=== PATIENT | male | born 1965 | race Caucasian/White ===

== ENCOUNTER 2018-06-29 07:01 | Emergency (ER) | payer OTHER ==
[2018-06-29] MEDS ORDERED: NA CHLORIDE 0.9% 1,000 ML ONE (07:29)
[2018-06-29] MEDS ORDERED: MORPHINE 4 MG/ML SYR ONE (07:29)
[2018-06-29] MEDS ORDERED: KETOROLAC 30 MG/ML INJ ONE (07:29)
[2018-06-29 07:53] LABS: Absolute Lymphocytes (CBC) 2.2 K/uL (0.7-4.9); Absolute Monocytes 0.6 K/uL (0.1-1.3); Absolute Neutrophil 3.6 K/uL (1.8-8.0); Basophils % 0.9 % (0-1.3); Eosinophils % 4.4 % (0-4.4); Hematocrit 45.3 % (39.6-49.0); Lymphocytes % 32.1 % (15.3-44.8); MCH 31.7 pg (27.0-35.0); MCV 91.5 fL (80-100); MPV 11.7 fL (7.6-11.3); Monocytes % 9.3 % (3.3-12.3); RBC Red Blood Cell Count 4.96 M/uL (4.33-5.43)
--- NOTE | 2018-06-29 07:56 | RAD REPORT ---
EXAM DESCRIPTION: CT - Stone Protocol - 06/29/2018 7:40 am CLINICAL HISTORY: Abdominal pain. Left flank pain since yesterday with vomiting COMPARISON: None. TECHNIQUE: Computed axial tomography of the abdomen pelvis was obtained without oral or IV contrast. Lack of IV and oral contrast limits evaluation of solid organs, bowel, and vessels. Coronal reformat jeannette images were obtained and reviewed. All CT scans are performed using dose optimization technique as appropriate and may include automated exposure control or mA/KV adjustment according to patient size. FINDINGS: A left renal calculus is not seen. Mild left hydronephrosis and mild left hydroureter are seen. A 2 millimeter calculus is present within the distal left ureter near the ureteral vesicle junc tion. Two tiny nonobstructing right renal calculi are noted. Small bilateral hernias contain fat The liver, spleen, pancreas and adrenals appear grossly normal There is no evidence of diverticulitis. The appendix appears normal A duodenal diverticulum is seen. IMPRESSION: 2 millimeter calculus distal right ureter resulting in mild left hydronephrosis
[2018-06-29 08:00] LABS: Bilirubin Direct 0.2 mg/dL (0-0.2); Bilirubin Total 0.4 mg/dL (0.2-1.0); Potassium 3.5 mmol/L (3.5-5.1); Protein, Total 7.4 g/dL (6.4-8.2)
--- NOTE | 2018-06-29 08:23 | ER ---
Nurse's Notes [facility] Name: Felix Grant Age: 52 yrs Sex: Male : 1965 Arrival Date: 06/29/2018 Time: 07:03 Bed 13 Private MD: Shakeel Ovalles V Diagnosis: Hydronephrosis with renal and ureteral calculous obstruction-mild, at UVJ Presentation: 06/29 07:04 Presenting complaint: Patient states: left flank pain that began yesterday. Pt states aa5 "I had the pain all day yesterday until around 6pm and then it came back this morning". Pt reports nausea and vomiting yesterday, denies N/V today. 07:04 Transition of care: patient was not received from another setting of care. Onset of aa5 symptoms was June 2018. Risk Assessment: Do you want to hurt yourself or someone else? Patient reports no desire to harm self or others. Initial Sepsis Screen: Does the patient meet any 2 criteria? No. Patient's initial sepsis screen is negative. Does the patient have a suspected source of infection? No. Patient's initial sepsis screen is negative. Care prior to arrival: None. 07:04 Method Of Arrival: Ambulatory aa5 07:04 Acuity: SONDRA 3 aa5 Historical: - Allergies: 07:05 No Known Allergies; aa5 - PMHx: 07:05 Kidney stones; aa5 - PSHx: 07:05 None; aa5 - Immunization history:: Adult Immunizations up to date. - Social history:: Smoking status: Patient/guardian denies using tobacco. - Ebola Screening: : No symptoms or risks identified at this time. Screenin:05 Abuse screen: Denies threats or abuse. Nutritional screening: No deficits noted. aa5 Tuberculosis screening: No symptoms or risk factors identified. Fall Risk None identified. Assessment: 07:08 General: Appears uncomfortable, Behavior is calm, cooperative. Pain: Complains of pain aa5 in left flank Pain does not radiate. Pain currently is 7 out of 10 on a pain scale. Quality of pain is described as sharp, Pain began 1 day ago. Is intermittent. Neuro: Level of Consciousness is awake, alert, obeys commands, Oriented to person, place, time, situation. Cardiovascular: Heart tones S1 S2 present Rhythm is regular. Respiratory: Airway is patent Respiratory effort is even, unlabored, Respiratory pattern is regular, symmetrical. GI: Abdomen is round non-distended, Bowel sounds present X 4 quads. Abd is soft and non tender X 4 quads. Reports nausea, vomiting, yesterday, denies Nausea or vomiting today. : Denies inability to void. EENT: No signs and/or symptoms were reported regarding the EENT system. Derm: Skin is pink, warm \\T\\ dry. Musculoskeletal: Range of motion: intact in all extremities. 07:31 Reassessment: Patient and/or family updated on plan of care and expected duration. Pain aa5 level reassessed. Patient is alert, oriented x 3, equal unlabored respirations, skin warm/dry/pink. Pain: Pain currently is 7 out of 10 on a pain scale. 07:55 Reassessment: Patient and/or family updated on plan of care and expected duration. Pain aa5 level reassessed. Patient is alert, oriented x 3, equal unlabored respirations, skin warm/dry/pink. Patient states feeling better. Pt reminded of need for urine collection, pt states "I still can't pee right now, maybe in a little bit". Pt sitting up in bed watching TV . Pain: Pain currently is 1 out of 10 on a pain scale. 08:22 Reassessment: Patient and/or family updated on plan of care and expected duration. Pain aa5 level reassessed. Patient is alert, oriented x 3, equal unlabored respirations, skin warm/dry/pink. Pain: Pain currently is 1 out of 10 on a pain scale. 08:50 Reassessment: Patient is alert, oriented x 3, equal unlabored respirations, skin aa5 warm/dry/pink. Awaiting for pt's father for ride home. . 09:30 Reassessment: Patient is alert, oriented x 3, equal unlabored respirations, skin aa5 warm/dry/pink. Vital Signs: 07:05 BP 149 / 104; Pulse 68; Resp 18 S; Temp 98.3(O); Pulse Ox 98% on R/A; Weight 88.45 kg aa5 (R); Height 5 ft. 10 in. (177.80 cm) (R); Pain 7/10; 07:56 BP 136 / 91; Pulse 58; Resp 16 S; Pulse Ox 96% on R/A; Pain 1/10; aa5 07:05 Body Mass Index 27.98 (88.45 kg, 177.80 cm) aa5 ED Course: 07:03 Patient arrived in ED. am2 07:03 Shakeel Ovalles MD is Private Physician. am2 07:03 Arm band placed on. aa5 07:03 Patient placed in an exam room, on a stretcher. aa5 07:03 Patient has correct armband on for positive identification. Bed in low position. Call aa5 light in reach. Side rails up X 1. 07:10 Silvia Mcdaniel, RN is Primary Nurse. aa5 07:13 Triage completed. aa5 07:16 Inserted saline lock: 20 gauge in right antecubital area, using aseptic technique. em1 Blood collected. 07:19 Kimberly Cerda FNP-C is PHCP. snw 07:19 Phil Tucker MD is Attending Physician. snw 07:39 CT completed. Patient tolerated procedure well. Patient moved to CT via wheelchair. sj Patient moved back from CT. 07:40 CT Stone Protocol In Process Unspecified. EDMS 08:22 Shakeel Ovalles MD is Referral Physician. snw 09:25 No provider procedures requiring assistance completed. aa5 09:30 IV discontinued, intact, bleeding controlled, No redness/swelling at site. Pressure aa5 dressing applied. Administered Medications: 07:26 Drug: NS 0.9% 1000 ml Route: IV; Rate: 75 ml/hr; Site: right antecubital; aa5 09:30 Follow up: IV Status: Order to discontinue infusion aa5 07:26 Drug: TORadol 30 mg Route: IVP; Site: right antecubital; aa5 07:31 Follow up: Response: No adverse reaction aa5 07:26 Drug: morphine 4 mg Route: IVP; Site: right antecubital; aa5 07:31 Follow up: Response: No adverse reaction aa5 08:22 Drug: Flomax 0.4 mg Route: PO; aa5 08:35 Follow up: Response: No adverse reaction aa5 08:35 Drug: fentaNYL (PF) 50 mcg Route: IM; Site: right deltoid; aa5 08:50 Follow up: Response: No adverse reaction aa5 Outcome: 08:22 Discharge ordered by . snw 09:32 Discharged to home ambulatory, with family. aa5 09:32 Condition: improved 09:32 Discharge instructions given to patient, Instructed on discharge instructions, follow up and referral plans. medication usage, Demonstrated understanding of instructions, follow-up care, medications, Prescriptions given X 3. 09:45 Patient left the ED. aa5 Signatures: Dispatcher [employer] EDMS Kimberly Cerda, CREDIT ANALYSIS MANAGER-C CREDIT ANALYSIS MANAGER-CsnPayal Valderrama Eric em1 Silvia Mcdaniel RN RN aa5 Maryse Mcghee am2 Corrections: (The following items were deleted from the chart) 10:18 09:51 Patient left the ED. em1 aa5
--- NOTE | 2018-06-29 08:23 | EDPHYS ---
Physician Documentation [facility] Name: Felix Grant Age: 52 yrs Sex: Male : 1965 Arrival Date: 06/29/2018 Time: 07:03 Bed 13 Private MD: Shakeel Ovalles V ED Physician Phil Tucker HPI: 06/29 07:43 This 52 yrs old Male presents to ER via Ambulatory with complaints of Flank snw Pain. 07:43 The patient complains of pain in the left low back. The pain does not radiate. Onset: snw The symptoms/episode began/occurred suddenly, and became persistent. Modifying factors: The symptoms are alleviated by nothing. the symptoms are aggravated by nothing. Associated signs and symptoms: Pertinent positives: nausea, vomiting. Severity of pain: At its worst the pain was severe. The patient has experienced similar episodes in the past, several times. The patient has not recently seen a physician. hx of kidney stones. Historical: - Allergies: 07:05 No Known Allergies; aa5 - PMHx: 07:05 Kidney stones; aa5 - PSHx: 07:05 None; aa5 - Immunization history:: Adult Immunizations up to date. - Social history:: Smoking status: Patient/guardian denies using tobacco. - Ebola Screening: : No symptoms or risks identified at this time. ROS: 07:42 Constitutional: Negative for fever, chills, and weight loss, Eyes: Negative for injury, snw pain, redness, and discharge, ENT: Negative for injury, pain, and discharge, Neck: Negative for injury, pain, and swelling, Cardiovascular: Negative for chest pain, palpitations, and edema, Respiratory: Negative for shortness of breath, cough, wheezing, and pleuritic chest pain, Abdomen/GI: Negative for abdominal pain, nausea, vomiting, diarrhea, and constipation, Back: Negative for injury and pain, MS/Extremity: Negative for injury and deformity, Skin: Negative for injury, rash, and discoloration, Neuro: Negative for headache, weakness, numbness, tingling, and seizure. 07:42 : Positive for flank pain. Exam: 07:42 Constitutional: This is a well developed, well nourished patient who is awake, alert, snw and in no acute distress. Head/Face: Normocephalic, atraumatic. Eyes: Pupils equal round and reactive to light, extra-ocular motions intact. Lids and lashes normal. Conjunctiva and sclera are non-icteric and not injected. Cornea within normal limits. Periorbital areas with no swelling, redness, or edema. ENT: Nares patent. No nasal discharge, no septal abnormalities noted. Tympanic membranes are normal and external auditory canals are clear. Oropharynx with no redness, swelling, or masses, exudates, or evidence of obstruction, uvula midline. Mucous membranes moist. Neck: Trachea midline, no thyromegaly or masses palpated, and no cervical lymphadenopathy. Supple, full range of motion without nuchal rigidity, or vertebral point tenderness. No Meningismus. Chest/axilla: Normal chest wall appearance and motion. Nontender with no deformity. No lesions are appreciated. Cardiovascular: Regular rate and rhythm with a normal S1 and S2. No gallops, murmurs, or rubs. Normal PMI, no JVD. No pulse deficits. Respiratory: Lungs have equal breath sounds bilaterally, clear to auscultation and percussion. No rales, rhonchi or wheezes noted. No increased work of breathing, no retractions or nasal flaring. Abdomen/GI: Soft, non-tender, with normal bowel sounds. No distension or tympany. No guarding or rebound. No evidence of tenderness throughout. Skin: Warm, dry with normal turgor. Normal color with no rashes, no lesions, and no evidence of cellulitis. MS/ Extremity: Pulses equal, no cyanosis. Neurovascular intact. Full, normal range of motion. Neuro: Awake and alert, GCS 15, oriented to person, place, time, and situation. Cranial nerves II-XII grossly intact. Motor strength 5/5 in all extremities. Sensory grossly intact. Cerebellar exam normal. Normal gait. Psych: Awake, alert, with orientation to person, place and time. Behavior, mood, and affect are within normal limits. 07:42 Back: pain, that is moderate, that is severe, ROM is normal, normal spinal alignment noted, CVA tenderness, is absent, vertebral tenderness, is not appreciated, muscle spasm, is not present. Vital Signs: 07:05 BP 149 / 104; Pulse 68; Resp 18 S; Temp 98.3(O); Pulse Ox 98% on R/A; Weight 88.45 kg aa5 (R); Height 5 ft. 10 in. (177.80 cm) (R); Pain 7/10; 07:56 BP 136 / 91; Pulse 58; Resp 16 S; Pulse Ox 96% on R/A; Pain 1/10; aa5 07:05 Body Mass Index 27.98 (88.45 kg, 177.80 cm) aa5 MDM: 07:21 Patient medically screened. [facility] 08:23 Data reviewed: vital signs, nurses notes. Data interpreted: Pulse oximetry: on room air snw is 96 %. Interpretation: acceptable. Counseling: I had a detailed discussion with the patient and/or guardian regarding: the historical points, exam findings, and any diagnostic results supporting the discharge/admit diagnosis, the presence of at least one elevated blood pressure reading (>120/80) during this emergency department visit, lab results, radiology results, the need for outpatient follow up, to return to the emergency department if symptoms worsen or persist or if there are any questions or concerns that arise at home. Special discussion: I have referred the patient to see his PCP for further evaluation of high blood pressure. Based on the history and exam findings, there is no indication for further emergent testing or inpatient evaluation. I discussed with the patient/guardian the need to see the primary care provider for further evaluation of the symptoms. I discussed with the patient/guardian the need to see the urologist for further evaluation of the symptoms. 06/29 07:21 Order name: Amylase, Serum; Complete Time: 08:14 snw 06/29 07:21 Order name: Basic Metabolic Panel; Complete Time: 08:14 snw 06/29 07:21 Order name: CBC with Diff; Complete Time: 08:14 snw 06/29 07:21 Order name: Creatinine for Radiology; Complete Time: 08:14 snw 06/29 07:21 Order name: Hepatic Function; Complete Time: 08:14 snw 06/29 07:21 Order name: Lipase; Complete Time: 08:14 snw 06/29 07:21 Order name: CT Stone Protocol; Complete Time: 08:14 snw 06/29 07:21 Order name: Urine Microscopic Only; Complete Time: 09:45 snw 06/29 09:31 Order name: Urine Dipstick--Ancillary (enter results); Complete Time: 09:45 bd 06/29 09:45 Order name: Urine Culture EDMS 06/29 07:21 Order name: IV Saline Lock; Complete Time: 07:22 snw 06/29 07:21 Order name: Labs collected and sent; Complete Time: 07:21 snw Administered Medications: 07:26 Drug: NS 0.9% 1000 ml Route: IV; Rate: 75 ml/hr; Site: right antecubital; aa5 09:30 Follow up: IV Status: Order to discontinue infusion aa5 07:26 Drug: TORadol 30 mg Route: IVP; Site: right antecubital; aa5 07:31 Follow up: Response: No adverse reaction aa5 07:26 Drug: morphine 4 mg Route: IVP; Site: right antecubital; aa5 07:31 Follow up: Response: No adverse reaction aa5 08:22 Drug: Flomax 0.4 mg Route: PO; aa5 08:35 Follow up: Response: No adverse reaction aa5 08:35 Drug: fentaNYL (PF) 50 mcg Route: IM; Site: right deltoid; aa5 08:50 Follow up: Response: No adverse reaction aa5 Disposition: 14:23 Co-signature as Attending Physician, Phil Tucker MD I agree with the assessment and pascual plan of care. Disposition: 06/29/18 08:22 Discharged to Home. Impression: Hydronephrosis with renal and ureteral calculous obstruction - mild, at UVJ. - Condition is Stable. - Discharge Instructions: Kidney Stones, Hydronephrosis, Dietary Guidelines to Help Prevent Kidney Stones. - Prescriptions for Zofran 4 mg Oral Tablet - take 1 tablet by ORAL route every 12 hours As needed; 20 tablet. Flomax 0.4 mg Oral Capsule, Sust. Release 24 hr - take 1 capsule by ORAL route once daily 1/2 hour following the same meal each day; 30 capsule. Diclofenac Sodium 75 mg Oral Tablet Sustained Release - take 1 tablet by ORAL route 2 times per day; 30 tablet. - Work release form, Medication Reconciliation Form, Thank You Letter, Antibiotic Education, Prescription Opioid Use form. - Follow up: Shakeel Ovalles; When: 1 - 2 days; Reason: Recheck today's complaints, Continuance of care, Re-evaluation by your physician. Follow up: Emergency Department; When: As needed; Reason: Worsening of condition. - Problem is new. - Symptoms have improved. Signatures: Dispatcher [employer] EDPhil Bob MD MD cha Therrien, Shelly, CLEARING DISTRIBUTION CLERK-C CLEARING DISTRIBUTION CLERK-Mendoza Lucas em1 Silvia Mcdaniel, RN RN aa5 Corrections: (The following items were deleted from the chart) 08:35 07:21 Urine Dipstick-Ancillary ordered. teja aa5 09:51 08:22 06/29/2018 08:22 Discharged to Home. Impression: Hydronephrosis with renal and em1 ureteral calculous obstruction - mild, at UVJ. Condition is Stable. Discharge Instructions: Kidney Stones, Hydronephrosis, Dietary Guidelines to Help Prevent Kidney Stones. Prescriptions for Zofran 4 mg Oral Tablet - take 1 tablet by ORAL route every 12 hours As needed; 20 tablet, Flomax 0.4 mg Oral Capsule, Sust. Release 24 hr - take 1 capsule by ORAL route once daily 1/2 hour following the same meal each day; 30 capsule, Diclofenac Sodium 75 mg Oral Tablet Sustained Release - take 1 tablet by ORAL route 2 times per day; 30 tablet. and Forms are Work release form, Medication Reconciliation Form, Thank You Letter, Antibiotic Education, Prescription Opioid Use. Follow up: Shakeel Ovalles; When: 1 - 2 days; Reason: Recheck today's complaints, Continuance of care, Re-evaluation by your physician. Follow up: Emergency Department; When: As needed; Reason: Worsening of condition. Problem is new. Symptoms have improved. snw
[2018-06-29] MEDS ORDERED: TAMSULOSIN 0.4 MG SR CAP ONE (08:25)
[2018-06-29] MEDS ORDERED: FENTANYL CITR 100 MCG/2 ML ONE (08:35)
[2018-06-29 09:43] LABS: Urine Bacteria 20-50 /HPF (NONE SEEN); Urine Culture Reflex Order REFLEXED; Urine Mucus 1+ /HPF (NONE SEEN); Urine RBC >50 /HPF (NONE SEEN)
[2018-06-29 09:44] LABS: Urine Blood 3+ (NEG); Urine Glucose NEGATIVE (NEG); Urine Protein 1+ (NEG); Urine Specific Gravity >1.030 (1.005-1.030); Urine pH 5.5 (5.0-7.0)
[2018-06-29 09:59] VITALS: TEMP 98.3
[2018-06-29 10:00] VITALS: BP 136/91; O2SAT 96
== END 2018-06-29 09:51 | disposition home or self-care (01) ==
LOC: ER 07:01
DX: N13.2 Hydronephrosis with renal and ureteral calculous obstruction (principal); Z87.442 Personal history of urinary calculi
CPT/HCPCS: 36415; 74176; 76377; 80048; 80076; 81003; 81015; 82150; 83690; 85025; 87086; 87088; 96361; 96372; 96374; 96375; 99284; J3010; J7030

== ENCOUNTER 2018-07-05 11:20 | Day surgery (SDC) | payer OTHER ==
[2018-07-04 17:00] LABS: Absolute Lymphocytes (CBC) 1.8 K/uL (0.7-4.9); Absolute Monocytes 0.6 K/uL (0.1-1.3); Absolute Neutrophil 4.4 K/uL (1.8-8.0); Basophils % 0.7 % (0-1.3); Hematocrit 44.6 % (39.6-49.0); Lymphocytes % 24.7 % (15.3-44.8); MCH 31.6 pg (27.0-35.0); MCV 91.1 fL (80-100); MPV 11.3 fL (7.6-11.3)
--- NOTE | 2018-07-04 17:16 | RAD REPORT ---
EXAM DESCRIPTION: RAD - Chest Pa And Lat (2 Views) - 07/04/2018 5:00 pm CLINICAL HISTORY: Preop chest, pending lithotripsy COMPARISON: August 2012 TECHNIQUE: PA and lateral views of the chest were obtained. FINDINGS: The lungs are clear. No suspicious interstitial pattern. Trachea is midline. Heart size i s normal and central vasculature is within normal limits. No pleural effusion or pneumothorax seen. No acute bony finding noted. No aortic abnormality. No worrisome change from the comparison study. IMPRESSION: No acute cardiopulmonary process.
[2018-07-04 17:23] LABS: Potassium 3.7 mmol/L (3.5-5.1)
--- NOTE | 2018-07-05 00:32 | EKG ---
Test Date: 2018-07-04 Test Time: 16:47:26 [employer] Officer: YAZAN MEASUREMENT RESULTS: Intervals: Rate: 54 AK: 208 QRSD: 98 QT: 418 QTc: 396 [place]: P: 31 AK: 208 QRS: 3 T: 39 INTERPRETIVE STATEMENTS: Sinus bradycardia Cannot rule out Anterior infarct, age undetermined Abnormal ECG Compared to ECG 09/05/2012 12:07:26 Myocardial infarct finding now present First degree AV block no longer present Electronically Signed On 07-05-18 00:31:54 CDT by Cuco Mondragon
[~2018-07-05 11:20] MED LIST: GENTAMICIN 100 MG/100 ML BAG 100 MG/100 ML BAG IV SCH
--- OUTSIDE RECORDS SUMMARY | 2018-07-05 11:25 | XMS REPORT | Clinical Summary ---
:1965 Author Organization [facility] Address [address] [place] [address] Care Team Providers Name Role Phone Shakeel Ovalles MD Primary Care Provider Allergies No Known Allergies Current Medications Prescription Sig. Disp. Refills Start Date End Date Status aspirin (ECOTRIN) 81 Take 81 mg Active MG enteric coated by mouth tablet daily. simvastatin (ZOCOR) Take 1 90 tablet 3 11/09/2017 Active 20 MG tablet (20 tabletIndications: mg total) by Hyperlipidemia, mouth unspecified nightly. hyperlipidemia type simvastatin (ZOCOR) Take 1 90 tablet 3 09/22/2016 09/22/2017 40 MG tablet tablet (40 mg total) by mouth nightly. simvastatin (ZOCOR) Take 20 mg 11/09/2017 Discontinued 20 MG tablet by mouth nightly. Active Problems Problem Noted Date Carotid bruit 11/09/2017 Peripheral vascular disease 11/09/2017 Stenosis of carotid artery 11/03/2016 Hyperlipidemia 11/03/2016 SOB (shortness of breath) 11/03/2016 Encounters Date Type Specialty Care Team Description 11/09/2017 Lab Lab Sonny Reeder MD Hyperlipidemia, unspecified hyperlipidemia type 11/09/2017 Office Visit Cardiology Sonny Reeder MD Stenosis of carotid artery, unspecified laterality (Primary Dx); Hyperlipidemia, unspecified hyperlipidemia type after 07/04/2017 Social History Tobacco Use Types Packs/Day Years Used Date Never Smoker Alcohol Use Drinks/Week oz/Week Comments Yes Sex Assigned at Date Recorded Not on file Last Filed Vital Signs Vital Sign Reading Time Taken Blood Pressure 139/99 11/09/2017 9:19 AM LAUNDRY PRICING CLERK Pulse 73 11/09/2017 9:19 AM LAUNDRY PRICING CLERK Temperature - - Respiratory Rate - - Oxygen Saturation - - Inhaled Oxygen Concentration - - Weight 88 kg (194 lb) 11/09/2017 9:19 AM LAUNDRY PRICING CLERK Height 177.8 cm (5' 10") 11/09/2017 9:19 AM LAUNDRY PRICING CLERK Body Mass Index 27.84 11/09/2017 9:19 AM LAUNDRY PRICING CLERK Plan of Treatment Date Type Specialty Care Team Description 11/08/2018 Office Visit Cardiology Sonny Reeder MD [address] [facility] [address] [place] [address] Health Maintenance Due Date Last Done Comments COLON CANCER SCREENING 2015 SHINGRIX VACCINE (#1) 2015 INFLUENZA VACCINE 05/25/2018 Procedures Procedure Name Priority Date/Time Associated Diagnosis Comments COPY RECEIVED FROM: Routine 11/09/2017 9:44 Results for this AM LAUNDRY PRICING CLERK procedure are in the results section. NON HDL CHOLESTEROL Routine 11/09/2017 9:44 Results for this ([facility]) AM LAUNDRY PRICING CLERK procedure are in the results section. CHOL/HDLC RATIO Routine 11/09/2017 9:44 Results for this ([facility]) AM LAUNDRY PRICING CLERK procedure are in the results section. LDL-CHOLESTEROL Routine 11/09/2017 9:44 Results for this ([facility]) AM LAUNDRY PRICING CLERK procedure are in the results section. TRIGLYCERIDES Routine 11/09/2017 9:44 Results for this AM LAUNDRY PRICING CLERK procedure are in the results section. HDL CHOLESTEROL Routine 11/09/2017 9:44 Results for this AM LAUNDRY PRICING CLERK procedure are in the results section. CHOLESTEROL Routine 11/09/2017 9:44 Results for this AM LAUNDRY PRICING CLERK procedure are in the results section. COPY(IES) SENT TO: Routine 11/09/2017 9:44 Results for this AM LAUNDRY PRICING CLERK procedure are in the results section. AST (SGOT) Routine 11/09/2017 9:44 Hyperlipidemia, Results for this AM LAUNDRY PRICING CLERK unspecified procedure are in hyperlipidemia type the results section. LIPID PANEL Routine 11/09/2017 9:44 Hyperlipidemia, Results for this AM LAUNDRY PRICING CLERK unspecified procedure are in hyperlipidemia type the results section. after 07/04/2017 Results NON HDL CHOLESTEROL ([facility]) (11/09/2017 9:44 AM) Non-HDL cholesterol 82 <130 mg/dL (calc) [facility] Comment: ROBBI For patients with diabetes plus 1 major ASCVD risk factor, treating to a non-HDL-C goal of <100 mg/dL (LDL-C of <70 mg/dL) is considered a therapeutic option. Resulting Agency Comment Performing Organization Information: Site ID: [id number] Name: [facility] Address: [address] [place] [phone] Director: Evelyn Saleh MD Performing Organization Address [facility] Phone Number [employer] [place] [phone] CHOL/HDLC RATIO ([facility]LEX [facility]) (11/09/2017 9:44 AM) Cholesterol/HDL ratio 2.8 <5.0 (calc) [facility] [place] Resulting Agency Comment Performing Organization Information: Site ID: ALVIN Name: [facility] Address: [address] [place] [phone] Director: Evelyn Saleh MD Performing Organization Address [facility] Phone Number [employer] [place] [address] COPY RECEIVED FROM: (11/09/2017 9:44 AM) Copy received from: [facility] Comment: [address] [facility] [address] [place] [address] Performing Organization Address [facility] Phone Number [facility] LDL-CHOLESTEROL ([facility]) (11/09/2017 9:44 AM) LDL cholesterol 64 mg/dL (calc) [facility] calculated Comment: [place] Reference range: <100 Desirable range <100 mg/dL for patients with CHD or diabetes and <70 mg/dL for diabetic patients with known heart disease. LDL-C is now calculated using the Marcelino-Marah calculation, which is a validated novel method providing better accuracy than the Friedewald equation in the estimation of LDL-C. Marcelino SS et al. REKHA. 2013;310(19): 0231-0273 (http://education.BuzzSumo.Medialets/faq/ILQ858) Resulting Agency Comment Performing Organization Information: Site ID: ALVIN Name: [facility] Address: [address] [place] [phone] Director: Evelyn Saleh MD Performing Organization Address [facility] Phone Number [employer] [facility] [address] [place] [address] COPY(IES) SENT TO: (11/09/2017 9:44 AM) Copies/mL [facility] Comment: ESTELLA [facility]ARDIO [address] [place] [address] Performing Organization Address City/State/Zipcode Phone Number [facility] Triglycerides (11/09/2017 9:44 AM) Triglycerides 97 <150 mg/dL [facility] [place] Resulting Agency Comment Performing Organization Information: Site ID: RGA Name: [facility] Address: [address] [place] [phone] Director: Evelyn Saleh MD Performing Organization Address [facility] Phone Number [employer] [place] [address] AST (SGOT) (11/09/2017 9:44 AM) AST 20 10 - 35 U/L [facility] [place] Specimen Blood Resulting Agency Comment Performing Organization Information: Site ID: RGA Name: [facility] Address: [address] [place] [phone] Director: Evelyn Saleh MD Performing Organization Address [facility] Phone Number [employer] [place] [address] HDL cholesterol (11/09/2017 9:44 AM) HDL cholesterol 45 >40 mg/dL [facility] [place] Resulting Agency Comment Performing Organization Information: Site ID: [id number] Name: [facility] Address: [address] [place] [phone] Director: Evelyn Saleh MD Performing Organization Address [facility] Phone Number [employer] [address] [address] Cholesterol (11/09/2017 9:44 AM) Cholesterol, total 127 <200 mg/dL [facility] [place] Resulting Agency Comment Performing Organization Information: Site ID: RGA Name: [facility] Address: [address] [place] [phone] Director: Evelyn Saleh MD Performing Organization Address City/State/[facility] Phone Number [facility] [address] [place] [address] Lipid panel (11/09/2017 9:44 AM) Cholesterol, total 127 <200 mg/dL [facility] HDL cholesterol 45 >40 mg/dL [facility] Triglycerides 97 <150 mg/dL [facility] LDL cholesterol 64 mg/dL (calc) [facility] calculated Comment: [place] Reference range: <100 Desirable range <100 mg/dL for patients with CHD or diabetes and <70 mg/dL for diabetic patients with known heart disease. LDL-C is now calculated using the Treva calculation, which is a validated novel method providing better accuracy than the Friedewald equation in the estimation of LDL-C. Marcelino SS et al. REKHA. 2013;310(19): 8965-1535 (http://education.Vidyo/faq/RIE412) Cholesterol/HDL ratio 2.8 <5.0 (calc) [facility] Non-HDL cholesterol 82 <130 mg/dL [facility] Comment: (calc) [place] For patients with diabetes plus 1 major ASCVD risk factor, treating to a non-HDL-C goal of <100 mg/dL (LDL-C of <70 mg/dL) is considered a therapeutic option. Specimen Blood Resulting Agency Comment Performing Organization Information: Site ID: [id number] Name: [facility] Address: [address] [place] [address] Director: Evelyn Saleh MD Performing Organization Address [facility] Hospitalcode Phone Number [place] [employer] [facility] [address] [place] [address] after 07/04/2017 Insurance Payer Benefit Plan / Group Subscriber ID Type Phone Address AETNA AETNA PPO OPEN CHOICE xxxxxxxxx PPO
[2018-07-05] MEDS ORDERED: Ringers Lactate 1,000 ML IV ONE (11:36)
[2018-07-05] MEDS ORDERED: GENTAMICIN 100 MG/100 ML BAG 100 MG/100 ML BAG IV ONE (12:04)
--- NOTE | 2018-07-05 12:38 | RAD REPORT ---
EXAM DESCRIPTION: RAD - Abdomen 1 View (KUB) - 07/05/2018 12:05 pm CLINICAL HISTORY: Left flank pain Pain COMPARISON: Stone Protocol dated 06/29/2018 FINDINGS: The bowel gas pattern is non-obstructive. No evidence of free air or pneumatosis. Small ca lcific density in the left inferior hemipelvis is present probably representing patient's known dista l left ureter stone.
[2018-07-05] MEDS ORDERED: MIDAZOLAM HCL 2 MG/2 ML INJ ONE (14:08)
[2018-07-05] MEDS ORDERED: FENTANYL CITR 100 MCG/2 ML ONE (14:12)
[2018-07-05] MEDS ORDERED: PROPOFOL 200 MG/20 ML VIAL IV ONE (14:12)
[2018-07-05] MEDS ORDERED: ONDANSETRON HCL 40 MG/20 ML VIAL ONE (14:13)
[2018-07-05] MEDS ORDERED: LIDOCAINE 1% MPF 2 ML AMPULE ONE (14:13)
[2018-07-05] MEDS ORDERED: PHENAZOPYRIDINE 100MG TAB PO ONE (15:26)
[2018-07-05] MEDS ORDERED: HYDROCODONE/APAP 10/325 TAB ONE (16:35)
[2018-07-05 17:10] VITALS: TEMP 97.1; O2SAT 100
[2018-07-05 17:12] VITALS: BP 121/78
== END 2018-07-05 16:55 | disposition home or self-care (01) ==
LOC: OR 11:20
PROVIDERS: ATTEND Urology
PROC: 0TF4XZZ Fragmentation in Left Kidney Pelvis, External Approach (ICD-10-PCS; 2018-07-05)
PROC: BT1FZZZ Fluoroscopy of Left Kidney, Ureter and Bladder (ICD-10-PCS; principal; 2018-07-05 14:45)
DX: N20.2 Calculus of kidney with calculus of ureter (principal); Z86.73 Personal history of transient ischemic attack (TIA), and cerebral infarction without residual deficits
CPT/HCPCS: 36415; 50590; 71046; 74018; 80048; 85025; 85730; 87086; 87088; 93005; J1580; J2001; J2250; J2405; J3010; Q9967

== ENCOUNTER 2022-12-26 13:49 | Emergency (ER) | payer OTHER ==
--- OUTSIDE RECORDS SUMMARY | 2022-12-26 13:58 | XMS REPORT | Continuity of Care Document ---
:1965 Author Organization [facility] t Address [phone] Care Team Providers Name Role Phone Shakeel Ovalles MD Primary Care Physician Derek Reeder MD Attending Clinician Eduardo Attending Clinician Unavailable Mago Gil MA Attending Clinician Unavailable Satish Ortiz MA Attending Clinician Unavailable Eduardo Admitting Clinician Unavailable Payers Payer Name Policy Type Policy Number Effective Date Expiration Date Jonn wall [employer]ET[employer] - CHOICE [id number] 2022 00:00:00 (POS II) Problems Condition Condition Condition Status Onset Resolution Last Treating Co mments Source Name Details Category Date Date Treatment Clinician Date Chest pain Chest pain Disease Active [facility] Carotid Carotid Disease Active [facility] bruit bruit [facility] 00:[facility]: [facility] 00 l Peripheral Peripheral Disease Active [facility] vascular vascular 1-16 st disease disease 00:00: [facility]osp[facility] 00 l Bilateral Bilateral Disease Active [facility] carotid carotid 1-10 st artery artery 00:00: [facility]ospita disease disease 00 l Hyperlipid Hyperlipid Disease Active [facility] emia emia 1-10 st 00:00: [facility]osp[facility] 00 l SOB SOB Disease Active [facility] (shortness (shortness 1-10 st of breath) of breath) 00:00: Ho spita 00 l Allergies, Adverse Reactions, Alerts Allergy Allergy Status Severity Reaction(s) Onset Inactive Treating Comm ents Source Name Type Date Date Clinician No Known DA Active [facility]04 [place] [facility] 00[facility] l Social History Social Habit Start Date Stop Date Quantity Comments Source Alcohol intake 2020-11-05 2020-11-05 Current drinker [facility] 00:00:00 00:00:00 of alcohol Hospital (finding) Sex Assigned At [birth year] [facility] Smoking Status Start Date Stop Date Source Never smoked tobacco [facility] Medications Ordered Filled Start Stop Current Ordering Indication Dosage Frequency Signature Comments Components Source Medication Medication Date Date Medication? Clinician (SIG) Name Name aspirin Yes 81mg QD Take 1 [facility] (ECOTRIN) 2-21 tablet (81 st 81 MG 11:09: mg total) Hospita enteric 52 by mouth l coated daily. tablet simvastatin 2021-10 Yes [id number] 20mg QD Take 1 [facility] (ZOCOR) 20 1-08 tablet (20 st mg tablet 00:00: mg total) Hos sam 00 by mouth l nightly. simvastatin 2021-10- No [id number] 20mg QD Take 1 [facility] (ZOCOR) 20 0-27 11-08 tablet (20 st mg tablet 00:00: 00:00 mg total) [facility] 00 :00 by mouth l nightly. simvastatin 2021- No [id number] 20mg QD Take 1 [facility] (ZOCOR) 20 2-22 10-27 tablet (20 st mg tablet 00:00: 00:00 mg total) [facility] 00 :00 by mouth l nightly. Vital Signs Vital Name Observation Time Observation Value Comments Source Systolic blood 2022-12-15 17:09:00 145 mm[Hg] [facility] pressure Diastolic blood 2022-12-15 17:09:00 90 mm[Hg] [facility] pressure Heart rate 2022-12-15 17:09:00 72 /min [facility] Body height 2022-12-15 17:09:00 177.8 cm [facility] Body weight 2022-12-15 17:09:00 91.173 kg [facility] BMI 2022-12-15 17:09:00 28.84 kg/m2 [facility] Procedures Procedure Date / Time Performed Performing Clinician Sourc e ECG 12-LEAD 2022-12-15 17:08:50 Derek Reedertal Plan of Care Planned Activity Planned Date Details Comments Source Future Scheduled 2022-12-22 COVID-19 VACCINE (#1) [facility] Test 08:52:49 [code = COVID-19 VACCINE (#1)] Future Scheduled 2022-12-22 Hepatitis C screening [facility] Test 08:52:49 (procedure) [code = 937742520] Future Scheduled 2022-12-22 COLONOSCOPY SCREENING [facility] Test 08:52:49 [code = COLONOSCOPY SCREENING] Future Scheduled 2022-12-22 SHINGLES VACCINES (1 [facility] Test 08:52:49 of 2) [code = SHINGLES VACCINES (1 of 2)] Future Scheduled 2022-12-22 INFLUENZA VACCINE [facility] Test 08:52:49 [code = INFLUENZA VACCINE] Encounters Start End Encounter Admission Attending Care Care Encounter Source Date/Time Date/Time Type Type Clinicians Facility Department ID 2022-12-15 2022-12-15 Office Brenda 1.2.840.1 [id number] [facility] 11:00:00 11:10:00 Visit Derek Henry [address]79.1.[address] 3.430.2.7 Hospit a .3.406455 l .8 2022-12-15 2022-12-15 Outpatient BRENDA [facility] [id number] [address] [place] 00:00:00 00:00:[address] 2022-12-15 2022-12-15 Travel 1.2.840.1 [id number] [facility] 00:00:00 00:00:[address] 3.430.2.7 0.2.7.3.698 Alec garcia .3.675962 084.8 l .8 2022-09-14 2022-09-14 Outpatient PierreshannaDelonte [facility] [address] [place] 00:00:00 00:00:00 [id number] [facility] 2022-09-01 2022-09-01 Refill Jeffery, 1.2.840.1 [id number] [facility] 00:00:00 00:00:[address] 3.430.2.7 Hospit a .3.644424 l .8 2022-09-01 2022-09-01 Orders Jeffery, 1.2.840.1 [id number] [facility] 00:00:00 00:00:00 Only Mago [address]90.1.[address] 3.430.2.7 Hospit a .3.816159 l .8 2022-08-20 2022-08-20 Orders Satish Ortiz 1.2.840.1 [id number] [facility] 00:00:00 00:00:[address] 3.430.2.7 Hospit a .3.551789 l .8 2022-08-14 2022-08-14 Jean Pierre Reeder 1.2.840.1 [id number] [id number] [facility] 00:00:00 00:00:00 Derek Henry [address]1.[address] 3.430.2.7 Hospit a .3.460252 l .8 2021-12-16 2021-12-16 Outpatient [facility] [id number] [place] 00:00:00 00:00:00 DEREK [address] 2021-11-04 2021-11-04 Outpatient [facility] [id number] [address] [place] 00:00:00 00:00:00 DEREK [address] 2020-11-05 2020-11-05 Outpatient [facility] [id number] [address] [place] 00:00:00 00:00:00 DEREK [address] Results Test Description Test Time Test Comments Results Result Comments Source ECG 12 lead 2022-12-15 20:16:12 Test Item Value Reference Range Interpretation Comme nts Ventricular rate (test code = 253) 70 Atrial rate (test code = 255) 70 HI interval (test code = 266) 200 QRSD interval (test code = 260) 88 QT interval (test code = 264) 380 QTC interval (test code = 265) 410 P axis 1 (test code = 267) 38 QRS axis 1 (test code = 268) 41 T wave axis (test code = 270) 29 EKG impression (test code = 273) Normal sinus rhythm-Poor R wave progression- [facility]
[2022-12-26 14:41] LABS: Absolute Lymphocytes (CBC) 1.1 K/uL (0.7-4.9); Lymphocytes % 7.4 % (15.3-44.8); MCV 91.7 fL (80-100); MPV 10.6 fL (7.6-11.3); RBC Red Blood Cell Count 5.02 M/uL (4.33-5.43)
[2022-12-26] MEDS ORDERED: NA CHLORIDE 0.9% 250 ML ONE (14:46)
[2022-12-26] MEDS ORDERED: FENTANYL CITR 100 MCG/2 ML ONE (14:46)
[2022-12-26] MEDS ORDERED: PROMETHAZINE INJ 25 MG/ML AMP ONE (14:46)
[2022-12-26] MEDS ORDERED: NA CHLORIDE 0.9% 1,000 ML ONE (14:46)
[2022-12-26 14:57] LABS: Albumin 4.1 g/dL (3.4-5.0); Bilirubin Total 0.4 mg/dL (0.2-1.0); Potassium 3.8 mmol/L (3.5-5.1); Protein, Total 7.3 g/dL (6.4-8.2)
[2022-12-26 15:39] LABS: Urine Blood Negative (Negative); Urine Glucose Negative (Negative); Urine Protein Negative (Negative); Urine Specific Gravity 1.025 (1.005-1.030); Urine pH 5.5 (5.0-7.0)
--- NOTE | 2022-12-26 15:53 | RAD REPORT ---
EXAM DESCRIPTION: CT - Abdomen Pelvis W Contrast - 12/26/2022 3:18 pm CLINICAL HISTORY: Abd pain COMPARISON: Stone Protocol dated 06/29/2018 TECHNIQUE: Thin cut axial CT imaging of the abdomen and pelvis was performed following intravenous a dministration of 95 Isovue 300. Multiplanar reformats were generated and reviewed. All CT scans are performed using dose optimization technique as appropriate and may include automated exposure control or mA/KV adjustment according to patient size. FINDINGS: No suspicious findings in the lung bases. The liver, adrenal glands, and pancreas show no suspicious findings. Subcentimeter right os in the ri ght and left upper lobes are arise given their small size, I would favor benign nature, probably smal l cysts. Gallbladder and biliary tree are also without suspicious finding. Wedge-shaped areas of hypoattenuation involving the spleen. Symmetric renal function is seen with no hydronephrosis or suspicious renal mass. 3 millimeter left r enal superior pole nonobstructing calculus. No dilated bowel loops or bowel wall thickening. Colonic diverticulosis. Small bilateral inguinal her nias containing fat. No free air, free fluid or inflammatory stranding. No hernia, mass or bulky lymp hadenopathy. The urinary bladder is without significant finding. No suspicious bony findings. IMPRESSION: Wedge-shaped areas of hypoattenuation involving the spleen, suggestive of splenic infarc ts. Incidental findings, as above, including a 3 millimeter left renal upper pole nonobstructing calculus . The findings were communicated to Kimberly Goldberg on 12/26/2022 at 15:49 hours.
[2022-12-26 16:09] LABS: Urine Bacteria None Seen /HPF (<20); Urine Mucus Slight /HPF (None Seen); Urine RBC <5 /HPF (None Seen)
[2022-12-26 16:16] LABS: Protime INR 1.08
[2022-12-26] MEDS ORDERED: HEPARIN/D5W 25,000 UNIT/500 ML BAG IV ONE (16:21)
[2022-12-26] MEDS ORDERED: HEPARIN 5000 UNIT/ML 1 ML VIAL ONE (16:21)
[2022-12-26 17:16] LABS: SARS-CoV-2 Antigen Rapid Res Negative (Negative)
--- NOTE | 2022-12-26 17:19 | RAD REPORT ---
EXAM DESCRIPTION: CT - Head Brain Wo Cont - 12/26/2022 5:05 pm CLINICAL HISTORY: baseline. History of recent stroke. 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 Multiplanar reformats we re generated and reviewed. All CT scans are performed using dose optimization technique as appropriate and may include automated exposure control or mA/KV adjustment according to patient size. FINDINGS: No intracranial hemorrhage, mass, or edema. Some residual intravascular contrast, from an abdominal CT performed earlier on the same day, limits evaluation for small volume subarachnoid hemor rhage however. Midline structures are unremarkable. Normal ventricular caliber for age. Slaughter-white matter differentiation is preserved, without evidence of acute infarct. No abnormal extra- axial fluid collections. Mastoid air cells are well aerated. Apmy-ay-lzdedqzy mucosal thickening along the ethmoidal air cells and right maxillary sinus. No acute bony findings. IMPRESSION: No evidence of an acute intracranial process.
[2022-12-26] MEDS ORDERED: HYDROMORPHONE HCL 1 MG/ML INJ ONE ×2 (17:28→20:29)
--- NOTE | 2022-12-26 17:41 | RAD REPORT ---
EXAM DESCRIPTION: CT - Head angio - 12/26/2022 5:05 pm CLINICAL HISTORY: vasculopathy COMPARISON: HEAD BRAIN W O CONTRAST dated 09/05/2012 TECHNIQUE: Axial CT angiography images of the head was performed with multiplanar and maximum intens ity projection reconstructions. Images performed following intravenous administration of 90mL Isovue 370. All CT scans are performed using dose optimization technique as appropriate and may include automated exposure control or mA/KV adjustment according to patient size. FINDINGS: No evidence of large vessel occlusion. No evidence of aneurysm or dissection flap is detec jeannette. No flow-limiting stenosis or vascular malformation identified. Antegrade flow is seen in the vertebral arteries. Proximal vertebral and basilar arteries are patent. Diminutive appearance of the left vertebral artery following the left PICA takeoff. PICAs are proxim ally patent. The visualized dural venous sinuses are grossly patent. IMPRESSION: No evidence of large vessel occlusion or flow-limiting stenosis.
--- NOTE | 2022-12-26 17:44 | RAD REPORT ---
EXAM DESCRIPTION: CT - Neck Angio - 12/26/2022 5:05 pm CLINICAL HISTORY: vasculopathy Recent history of stroke COMPARISON: Head angio dated 12/26/2022 TECHNIQUE: Axial CT angiography images of the head was performed with multiplanar and maximum intens ity projection reconstructions. Images performed following intravenous administration of 90mL Isovue 370. All CT scans are performed using dose optimization technique as appropriate and may include automated exposure control or mA/KV adjustment according to patient size. FINDINGS: A left aortic arch is identified with normal three vessel configuration of the great vesse ls. No significant flow abnormality is seen of the common carotid bilaterally. Mild atherosclerotic calc ific plaque at the carotid bulbs. No significant stenosis is identified involving the cervical segments of both internal carotid arteri es. Mild tortuosity of the right more than left cervical ICA. Normal flow is seen within both vertebral arteries. IMPRESSION: No significant flow abnormality of the neck vessels is identified.
--- NOTE | 2022-12-26 18:35 | ER ---
Nurse's Notes [facility] Name: Felix Grant Age: 57 yrs Sex: Male : 1965 Arrival Date: 12/26/2022 Time: 13:54 Bed 19 Private MD: Shakeel Ovalles V Diagnosis: Infarction of spleen Presentation: 12/26 14:01 Chief complaint: Patient states: abd pain that is worse to LUQ that began this morning ss while taking shower. Coronavirus screen: Client denies travel out of the [place] in the last 14 days. Ebola Screen: Patient denies exposure to infectious person. Patient denies travel to an Ebola-affected area in the 21 days before illness onset. Initial Sepsis Screen: Does the patient meet any 2 criteria? No. Patient's initial sepsis screen is negative. Does the patient have a suspected source of infection? No. Patient's initial sepsis screen is negative. Risk Assessment: Do you want to hurt yourself or someone else? Patient reports no desire to harm self or others. Onset of symptoms was December 26, 2022. 14:01 Method Of Arrival: Ambulatory ss 14:01 Acuity: SONDRA 3 ss Historical: - Allergies: 14:02 No Known Allergies; ss - Home Meds: 14:02 simvastatin Oral [Active]; ss - PMHx: 14:02 Kidney stones; ss 18:48 stroke 2010; ll1 - PSHx: 14:02 None; ss - Immunization history:: Client reports receiving the 2nd dose of the Covid vaccine. - Social history:: Smoking status: Patient denies any tobacco usage or history of. Screenin:09 [facility] ED Fall Risk Assessment (Adult) Score/Fall Risk Level 0 - 2 = Low Risk ll1 Oriented to surroundings, Maintained a safe environment, Educated pt \T\ family on fall prevention, incl call for assistance when getting out of bed, Hourly rounding (assess needs \T\ fall precautionary measures) done. Abuse screen: Denies threats or abuse. Nutritional screening: No deficits noted. Tuberculosis screening: No symptoms or risk factors identified. Assessment: 14:10 General: Appears uncomfortable, ill, Behavior is calm, cooperative, appropriate for ll1 age. Pain: Complains of pain in abdomen Quality of pain is described as aching, crampy, throbbing, Pain began 1 day ago. GI: Abdomen is flat, Bowel sounds present X 4 quads. Abd is soft Abdomen is tender to palpation in left upper quadrant Reports lower abdominal pain, upper abdominal pain, cramping, nausea, vomiting. 15:32 Reassessment: No changes from previously documented assessment. Patient and/or family ll1 updated on plan of care and expected duration. Pain level reassessed. Patient is alert, oriented x 3, equal unlabored respirations, skin warm/dry/pink. 16:09 Reassessment: No changes from previously documented assessment. Patient and/or family ll1 updated on plan of care and expected duration. Pain level reassessed. Patient is alert, oriented x 3, equal unlabored respirations, skin warm/dry/pink. 17:11 Reassessment: No changes from previously documented assessment. Patient and/or family ll1 updated on plan of care and expected duration. Pain level reassessed. Back from CT. 17:29 Reassessment: No changes from previously documented assessment. Patient and/or family ll1 updated on plan of care and expected duration. Pain level reassessed. Patient is alert, oriented x 3, equal unlabored respirations, skin warm/dry/pink. 18:29 Reassessment: No changes from previously documented assessment. Patient and/or family ll1 updated on plan of care and expected duration. Pain level reassessed. Patient is alert, oriented x 3, equal unlabored respirations, skin warm/dry/pink. 20:39 Reassessment: Patient and/or family updated on plan of care and expected duration. Pain ke1 level reassessed. Patient is alert, oriented x 3, equal unlabored respirations, skin warm/dry/pink. Patient denies pain at this time. Patient states feeling better. Patient states symptoms have improved. Vital Signs: 14:01 BP 165 / 99; Pulse 62; Resp 16; Temp 98.4(TE); Pulse Ox 97% on R/A; Weight 90.72 kg; ss Height 5 ft. 10 in. (177.80 cm); Pain 6/10; 16:08 BP 161 / 99; Pulse 68; Resp 17; ll1 17:28 BP 158 / 92; Pulse 84; Resp 14; Pulse Ox 97% on R/A; ll1 20:22 BP 144 / 92; Pulse 79; Resp 15; Temp 98.3; Pulse Ox 98% ; Pain 6/10; ke1 20:39 Pain 0/10; ke1 14:01 Body Mass Index 28.70 (90.72 kg, 177.80 cm) ED Course: 13:54 Patient arrived in ED. am2 13:54 Shakeel Ovalles MD is Private Physician. am2 14:02 Triage completed. ss 14:02 Arm band placed on left wrist. ss 14:07 [facility]C [facility]. snw 14:07 Jean Pinedo MD is Attending Physician. snw 14:13 Carole Trammell, BOBO is Primary Nurse. ll1 14:13 Inserted saline lock: 22 gauge in right antecubital area, using aseptic technique. ll1 Blood collected. 15:55 Urine Microscopic Only Sent. ll1 16:07 [place] Screen Profile Sent. ll1 16:09 Patient has correct armband on for positive identification. Bed in low position. Call ll1 light in reach. Side rails up X2. Client placed on continuous cardiac and pulse oximetry monitoring. NIBP monitoring applied. traffic monitor specialist on. 16:50 SARS RAPID Sent. ll1 17:07 initiated a transfer with Juancho Macario from the [facility]. 18:25 administrative approval given by Juancho Macario/ patient has been accepted to [facility] rm 740/ Dr. Zain Davis has accepted the patient in transfer/ report to be called to [phone]. 19:34 Primary Nurse role handed off by Carole Trammell RN wm 20:00 Uri Kline RN is Primary Nurse. ke1 Administered Medications: 14:50 Drug: NS 0.9% 1000 ml Route: IV; Rate: 1 bolus; Site: right antecubital; 1 16:14 Follow up: Response: No adverse reaction; IV Status: Completed infusion; IV Intake: ll1 1000ml 14:50 Drug: Phenergan (promethazine) 12.5 mg Route: IVP; Site: right antecubital; ll1 16:07 Follow up: Response: No adverse reaction; Nausea is decreased; RASS: Alert and Calm (0) 1 14:50 Drug: NS 0.9% 250 ml Route: IV; Rate: bolus; Site: right antecubital; ll1 16:07 Follow up: Response: No adverse reaction; IV Status: Completed infusion; IV Intake: ll1 250ml 14:50 Drug: fentaNYL (PF) 25 mcg Route: IVP; Site: right antecubital; ll1 16:08 Follow up: Response: No adverse reaction; Pain is decreased; RASS: Alert and Calm (0) ll1 16:14 Drug: fentaNYL (PF) 25 mcg {Note: RASS 0, pain 4/10.} Route: IVP; Site: right ll1 antecubital; 17:11 Follow up: Response: No adverse reaction; Pain is unchanged, physician notified; RASS: 1 Alert and Calm (0) 17:28 Drug: Dilaudid (HYDROmorphone) 1 mg {Note: RASS 0, pain 6/10.} Route: IVP; Site: right ll1 antecubital; 19:03 Follow up: Response: No adverse reaction; Pain is decreased; RASS: Alert and Calm (0) ll1 18:55 Drug: Heparin (UT-Bolus No thrombolytic) - HEParin 60 units/kg {Co-Signature: ke1 ll1 (Uri Kline RN).} Route: IVP; Site: right antecubital; 18:55 Drug: Heparin ([place] Drip) 12 units/kg/hr - (HEParin 66370 units, D5W 500 ml) ll1 {Co-Signature: mb9 (Analy Momin RN).} Route: IV; Rate: calculated rate; Site: right antecubital; 20:27 Drug: Dilaudid (HYDROmorphone) 1 mg Route: IVP; Site: right antecubital; ke1 20:39 Follow up: Pain 0/10 Adult; Response: Pain is decreased ke1 Medication: 16:09 VIS not applicable for this client. ll1 Intake: 16:07 IV: 250ml; Total: 250ml. ll1 16:14 IV: 1000ml; Total: 1250ml. ll1 Outcome: 18:34 ER care complete, transfer ordered by MD. lezama 21:22 Patient left the ED. vc1 Signatures: Kimberly Goldberg, GAYLE-C [employer] COOK-Aracelis Sood, RN RN Maryse Mcghee Elizabeth eb Lewis, Lynsay, RN RN ll1 Virginie Morse Vanessa, RN RN vc1 Uri Kline RN RN ke1 Uri Kline RN ke1 Analy Momin RN mb9 Corrections: (The following items were deleted from the chart) 19:00 06:55 Heparin (UT-Bolus No thrombolytic) - HEParin 60 units/kg IVP in right antecubital ll1 ll1
--- NOTE | 2022-12-26 18:35 | EDPHYS ---
Physician Documentation [facility] Name: Felix Grant Age: 57 yrs Sex: Male : 1965 Arrival Date: 12/26/2022 Time: 13:54 Bed 19 Private MD: Shakeel Ovalles V ED Physician Jean Pinedo HPI: 12/26 16:23 This 57 yrs old Male presents to ER via Ambulatory with complaints of Abdominal Pain, snw Vomiting. 16:23 The patient presents with abdominal pain in the upper abdomen. Onset: The snw symptoms/episode began/occurred suddenly. The symptoms do not radiate. Associated signs and symptoms: Pertinent positives: vomiting. The symptoms are described as constant, vague. Severity of pain: At its worst the pain was moderate severe. The patient has not experienced similar symptoms in the past. Saw PCP, Dr. Ovalles, two weeks ago. Also saw Dr. Reeder, his Meat Puller, a few weeks ago and was to have a stress test. Historical: - Allergies: 14:02 No Known Allergies; ss - Home Meds: 14:02 simvastatin Oral [Active]; ss - PMHx: 14:02 Kidney stones; ss 18:48 stroke 2010; ll1 - PSHx: 14:02 None; ss - Immunization history:: Client reports receiving the 2nd dose of the Covid vaccine. - Social history:: Smoking status: Patient denies any tobacco usage or history of. ROS: 14:41 Constitutional: Negative for fever, chills, and weight loss, Eyes: Negative for injury, snw pain, redness, and discharge, ENT: Negative for injury, pain, and discharge, Neck: Negative for injury, pain, and swelling, Cardiovascular: Negative for chest pain, palpitations, and edema, Respiratory: Negative for shortness of breath, cough, wheezing, and pleuritic chest pain, Back: Negative for injury and pain, : Negative for injury, bleeding, discharge, and swelling, MS/Extremity: Negative for injury and deformity, Skin: Negative for injury, rash, and discoloration, Neuro: Negative for headache, weakness, numbness, tingling, and seizure, Psych: Negative for depression, anxiety, suicide ideation, homicidal ideation, and hallucinations. 14:41 Abdomen/GI: Positive for abdominal pain, nausea and vomiting, of the right upper quadrant and left upper quadrant. Exam: 14:40 Constitutional: This is a well developed, well nourished patient who is awake, alert, snw and in no acute distress. Head/Face: Normocephalic, atraumatic. Eyes: Pupils equal round and reactive to light, extra-ocular motions intact. Lids and lashes normal. Conjunctiva and sclera are non-icteric and not injected. Cornea within normal limits. Periorbital areas with no swelling, redness, or edema. ENT: Nares patent. No nasal discharge, no septal abnormalities noted. Tympanic membranes are normal and external auditory canals are clear. Oropharynx with no redness, swelling, or masses, exudates, or evidence of obstruction, uvula midline. Mucous membranes moist. Neck: Trachea midline, no thyromegaly or masses palpated, and no cervical lymphadenopathy. Supple, full range of motion without nuchal rigidity, or vertebral point tenderness. No Meningismus. Chest/axilla: Normal chest wall appearance and motion. Nontender with no deformity. No lesions are appreciated. Cardiovascular: Regular rate and rhythm with a normal S1 and S2. No gallops, murmurs, or rubs. Normal PMI, no JVD. No pulse deficits. Respiratory: Lungs have equal breath sounds bilaterally, clear to auscultation and percussion. No rales, rhonchi or wheezes noted. No increased work of breathing, no retractions or nasal flaring. Male : Normal genitalia with no discharge or lesions. Skin: Warm, dry with normal turgor. Normal color with no rashes, no lesions, and no evidence of cellulitis. MS/ Extremity: Pulses equal, no cyanosis. Neurovascular intact. Full, normal range of motion. Neuro: Awake and alert, GCS 15, oriented to person, place, time, and situation. Cranial nerves II-XII grossly intact. Motor strength 5/5 in all extremities. Sensory grossly intact. Cerebellar exam normal. Normal gait. Psych: Awake, alert, with orientation to person, place and time. Behavior, mood, and affect are within normal limits. 14:40 Abdomen/GI: Inspection: abdomen appears normal, Bowel sounds: normal, Palpation: mild abdominal tenderness, moderate abdominal tenderness, in the right upper quadrant and left upper quadrant. Vital Signs: 14:01 BP 165 / 99; Pulse 62; Resp 16; Temp 98.4(TE); Pulse Ox 97% on R/A; Weight 90.72 kg; ss Height 5 ft. 10 in. (177.80 cm); Pain 6/10; 16:08 BP 161 / 99; Pulse 68; Resp 17; ll1 17:28 BP 158 / 92; Pulse 84; Resp 14; Pulse Ox 97% on R/A; ll1 20:22 BP 144 / 92; Pulse 79; Resp 15; Temp 98.3; Pulse Ox 98% ; Pain 6/10; ke1 20:39 Pain 0/10; ke1 14:01 Body Mass Index 28.70 (90.72 kg, 177.80 cm) ss MDM: 14:16 Patient medically screened. snw 16:21 Differential diagnosis: bowel obstruction, Cholelithiasis, gastritis, Hepatitis, snw pancreatitis, Perf. Gastric Ulcer, Pyelonephritis. Data reviewed: vital signs, nurses notes, EKG, radiologic studies. Management of patient was discussed with the following: Dr. Pinedo. 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 Pt has rec'd 3 CoVid vaccinations. 17:52 Management of patient was discussed with the following: Tool Designer Apprentice at [facility], Dr. Davis, consulted. Will await CTA head and neck results prior to heparin drip and prior to acceptance. Results came through, no large vessel occlusion, no evidence of aneurysmal flap or dissection. Results to transfer center. 18:32 ED course: Dr. Davis rec'd CTA results and agrees to start Heparin. RN notified. Pt snw aware of plan of care, comfortable at this time post Dilaudid. 12/26 14:26 Order name: CBC with Diff ll1 12/26 14:26 Order name: CMP ll1 12/26 14:26 Order name: Lipase ll1 12/26 14:26 Order name: IV Saline Lock; Complete Time: 14:26 ll1 12/26 14:26 Order name: Labs collected and sent; Complete Time: 14:26 ll1 12/26 14:41 Order name: Troponin High Sensitivity formerly [facility] 12/26 14:41 Order name: CBC with Automated Diff; Complete Time: 14:41 EDMS 12/26 14:41 Order name: CT Abd/Pelvis - IV Contrast Only formerly [facility] 12/26 14:58 Order name: Comprehensive Metabolic Panel; Complete Time: 20:15 EDMS 12/26 14:58 Order name: Lipase; Complete Time: 20:15 EDMS 12/26 15:13 Order name: Troponin High Sensitivity; Complete Time: 15:23 EDMS 12/26 15:34 Order name: Urine Microscopic Only formerly [facility] 12/26 15:34 Order name: Urine Dipstick-Ancillary (obtain specimen); Complete Time: 16:07 w 12/26 15:39 Order name: Urine Dipstick-Ancillary; Complete Time: 15:40 EDMS 12/26 15:53 Order name: PT-INR [facility] 12/26 15:53 Order name: Ptt, Activated [facility] 12/26 15:53 Order name: Lactate w/ 2H reflex if indic. 7 12/26 15:53 Order name: EKG; Complete Time: 15:54 7 12/26 15:53 Order name: EKG - Nurse/Tech; Complete Time: 16:07 7 12/26 15:53 Order name: CT; Complete Time: 16:05 EDMS 12/26 15:53 Order name: [place] Screen Profile [facility] 12/26 16:09 Order name: Urine Microscopic Only; Complete Time: 16:19 EDMS 12/26 16:17 Order name: Protime (+INR); Complete Time: 16:19 EDMS 12/26 16:17 Order name: PTT, Activated Partial Thromb; Complete Time: 16:19 EDMS 12/26 16:20 Order name: SARS RAPID [facility] 12/26 16:28 Order name: Lactate w/ 2H reflex if indic.; Complete Time: 16:28 EDMS 12/26 16:37 Order name: CT Head Angio w 12/26 16:37 Order name: CT Neck Angio w 12/26 17:16 Order name: SARS-COV-2 Antigen Rapid; Complete Time: 17:19 EDMS 12/26 17:19 Order name: Add On-Lab snw 12/26 17:20 Order name: [place] Screen; Complete Time: 17:20 EDMS 04 17:20 Order name: CT; Complete Time: 17:20 EDMS 04 17:42 Order name: CT; Complete Time: 17:47 EDMS 04 17:45 Order name: CT; Complete Time: 17:47 EDMS 04 20:09 Order name: Lipid Profile; Complete Time: 20:15 EDMS EC:15 Rate is 73 beats/min. Rhythm is regular. QRS [place] is Normal. [place] interval is normal. QRS snw interval is normal. QT interval is normal. Clinical impression: NSR w/ Non-specific ST/T Changes. Administered Medications: 14:50 Drug: NS 0.9% 1000 ml Route: IV; Rate: 1 bolus; Site: right antecubital; [facility] 16:14 Follow up: Response: No adverse reaction; IV Status: Completed infusion; IV Intake: ll1 1000ml 14:50 Drug: Phenergan (promethazine) 12.5 mg Route: IVP; Site: right antecubital; [facility] 16:07 Follow up: Response: No adverse reaction; Nausea is decreased; RASS: Alert and Calm (0) [facility] 14:50 Drug: NS 0.9% 250 ml Route: IV; Rate: bolus; Site: right antecubital; 1 16:07 Follow up: Response: No adverse reaction; IV Status: Completed infusion; IV Intake: ll1 250ml 14:50 Drug: fentaNYL (PF) 25 mcg Route: IVP; Site: right antecubital; [facility] 16:08 Follow up: Response: No adverse reaction; Pain is decreased; RASS: Alert and Calm (0) [facility] 16:14 Drug: fentaNYL (PF) 25 mcg {Note: RASS 0, pain 4/10.} Route: IVP; Site: right ll1 antecubital; 17:11 Follow up: Response: No adverse reaction; Pain is unchanged, physician notified; RASS: [facility] Alert and Calm (0) 17:28 Drug: Dilaudid (HYDROmorphone) 1 mg {Note: RASS 0, pain 6/10.} Route: IVP; Site: right ll1 antecubital; 19:03 Follow up: Response: No adverse reaction; Pain is decreased; RASS: Alert and Calm (0) ll1 18:55 Drug: Heparin ([place]-Bolus No thrombolytic) - HEParin 60 units/kg {Co-Signature: tressa ll1 (Uri Kline RN).} Route: IVP; Site: right antecubital; 18:55 Drug: Heparin ([place] Drip) 12 units/kg/hr - (HEParin 48477 units, D5W 500 ml) ll1 {Co-Signature: mb9 (Analy Momin RN).} Route: IV; Rate: calculated rate; Site: right antecubital; 20:27 Drug: Dilaudid (HYDROmorphone) 1 mg Route: IVP; Site: right antecubital; ke1 20:39 Follow up: Pain 0/10 Adult; Response: Pain is decreased ke1 Disposition Summary: 12/26/22 18:34 Transfer Ordered Transfer Location: [facility] snw Reason: Higher level of care snw Condition: Stable snw Problem: new snw Symptoms: are unchanged snw Accepting Physician: Dr. Davis(12/26/22 21:22) vc1 Diagnosis - Infarction of spleen snw Forms: - Medication Reconciliation Form snw - SBAR form snw Signatures: Dispatcher [employer] EDKimberly Salcedo FNP-C CONSULTING SOFTWARE ENGINEER-Csnw Aracelis Laughlin RN RN Dirk Richter RN RN [email or web address] Carole Trammell RN RN ll1 Donna Camp RN RN Uri Trevizo RN RN ke1 Uri Kline RN ke1 Analy [email or web address] Corrections: (The following items were deleted from the chart) 21:22 18:34 Dr. Davis snw vc1
[2022-12-26 21:53] VITALS: BP 144/92; TEMP 98.3; O2SAT 98
--- NOTE | 2022-12-28 16:44 | EKG ---
Test Date: 2022-12-26 Test Time: 16:04:17 Rn Lactation: TAL MEASUREMENT RESULTS: Intervals: Rate: 73 LA: 208 QRSD: 96 QT: 386 QTc: 425 [place]: P: 57 LA: 208 QRS: 39 T: 41 INTERPRETIVE STATEMENTS: Normal sinus rhythm with sinus arrhythmia Low voltage QRS Borderline ECG Compared to ECG 07/04/2018 16:47:26 Low QRS voltage now present Sinus bradycardia no longer present Myocardial infarct finding no longer present Electronically Signed On 12-28-22 16:38:38 [employer] FISHERMAN by Min Hernadez
== END 2022-12-26 21:22 | disposition short-term general hospital (02) ==
LOC: ER 13:49
DX: D73.5 Infarction of spleen (principal); Z87.442 Personal history of urinary calculi; Z20.822 Contact with and (suspected) exposure to COVID-19
CPT/HCPCS: 96365; 93005; 85025; 36415; 86308; 85610; 80061; 83605; 85730; 84484; 83690; 80053; 70450; 70496; 70498; 74177; 96375; 99285; 87811; Q9967 ×2; J2550; J1644 ×2; J3010; J1170 ×2; J7050; J7030; 81003; 81015

== ENCOUNTER 2024-02-01 07:32 | Emergency (ER) | payer OTHER ==
--- OUTSIDE RECORDS SUMMARY | 2024-02-01 07:34 | XMS REPORT | Clinical Summary ---
Author Name Unknown Organization [facility] [place] Address [address] [place] [address] Care Team Providers Care Digital Music Instructor Name Role Phone Matthias Huang MD Primary Care Prov ider Encounters Date Type Department Care Team Description 01/31/2024 2:00 PM CDT NPR MDA PATIENT ACCESS 01/30/2024 Orders Only [facility] [address] [place] [address] [facility], 9th [place] [address] Gaye Avila APRN Gastrointestinal stromal tumor of stomach (Primary Dx) 01/27/2024 Travel after 02/01/2023 Social History Tobacco Use Types Packs/Day Years Used Date Smoking Tobacco: Never Assessed Sex and Gender Information Value Date Recorded Sex Assigned at Male 01/27/2024 1:35 PM CDT Gender Identity Male 01/27/2024 1:35 PM CDT Sexual Orientation Straight 01/27/2024 1: 35 PM CDT Job Start Date Occupation Industry Not on file Not on file Not on file Plan of Treatment Upcoming Encounters Date Type Department Care Team Description 02/02/2024 9:45 AM CDT Appointment [facility] [address] [place] [address] [facility], [place] [address] Gaye Avila APRN [address] [place] [id number] 02/02/2024 10:30 AM CDT Office Visit [facility] [address] [place] [address], 9th [place] [address] Matthias Huang MD [address] [place], [place] [id number] Health Maintenance Due Date Last Done Comments COVID-19 Vaccine (2022-2 4 season) 2023 08/20/2022, 02/11/2021, 01/16/2021 Influenza Vaccine 06/25/2023 Care Teams Digital Music Instructor Relationship Specialty Start Date End Date Matthias Huang MD [address] [place] [id number] PCP - General Gastroenterology Surgery 01/27/24
--- NOTE | 2024-02-01 07:59 | EDPHYS ---
Physician Documentation [facility] Name: Felix Grant Age: 58 yrs Sex: Male : 1965 Arrival Date: 02/01/2024 Time: 07:32 Bed 4 Private MD: ED Physician Carl Hoksins HPI: 01/31 07:57 This 58 yrs old Male presents to ER via Ambulatory with complaints of Foreign ec2 Body In Eye. 07:57 Patient arrives today for right upper eyelid swelling. Patient reports that he feels ec2 like he has sensation in the eye. Patient reports no specific eye trauma. Patient reports that he has history of styes, has increased swelling. Patient reports symptoms been ongoing for approximately 5 days. Patient reports no fevers or chills, nausea or vomiting.. Historical: - Allergies: 07:46 No Known Allergies; ll1 - PMHx: 07:46 clot in the spleen; Kidney stones; stroke 2010; ll1 - PSHx: 07:46 PFO closure (stroke 2010); ll1 - Immunization history:: Adult Immunizations up to date. - Infectious Disease History:: Denies. - Social history:: Smoking status: Patient denies any tobacco usage or history of. ROS: 07:57 Constitutional: as per hpi ec2 Exam: 07:57 Constitutional: GEN: NAD Head: atraumatic Eyes: EOMI, hordeolum noted to the right ec2 upper eyelid, surrounding erythema, right globe with intact extraocular motions, intact pupillary response, no conjunctival injection. Ears: External ears are normal. CV: regular rate LUNGS: no respiratory distress ABD: non-distended SKIN: no evidence of rashes MSK: no evidence of trauma NEURO: moves all extremities equally Vital Signs: 07:47 BP 153 / 108; Pulse 71; Resp 16; Temp 97.2; Pulse Ox 96% ; Weight 90.72 kg; Height 5 ll1 ft. 10 in. ; Pain 4/10; 07:47 Body Mass Index 28.70 (90.72 kg, 177.8 cm) ll1 07:47 Pain Scale: Adult ll1 MDM: 07:51 Patient medically screened. ec2 07:57 Data reviewed: vital signs. ED course: Patient arrives today for evaluation of eye ec2 issues. Examination normal for eye examination as above. Suspect hordeolum, possible concurrent infection. Will send in antibiotics, instructed on warm compresses. Instructed to follow-up with gandy dancer as well.. Administered Medications: No medications were administered Disposition Summary: 02/01/24 07:59 Discharge Ordered Notes: Location: Home ec2 Condition: Stable ec2 Diagnosis - Hordeolum externum right upper eyelid ec2 Followup: ec2 - With: Private Physician - When: - Reason: Re-evaluation by your physician Discharge Instructions: - Discharge Summary Sheet ec2 - Stye ec2 Forms: - Medication Reconciliation Form ec2 - Thank You Letter ec2 - Antibiotic Education ec2 - Prescription Opioid Use ec2 - Patient Portal Instructions ec2 - Leadership Thank You Letter ec2 Prescriptions: - Cephalexin 500 mg Oral capsule - take 1 capsule ORAL route every 8 hours for 5 days; 15 capsule; Refills: 0, ec2 Product Selection Permitted Signatures: Carole Trammell RN RN ll1 Carey Coulter RN RN ko1 Carl Hoskins MD MD ec2
--- NOTE | 2024-02-01 07:59 | ER ---
Nurse's Notes [facility] Name: Felix Grant Age: 58 yrs Sex: Male : 1965 Arrival Date: 02/01/2024 Time: 07:32 Bed 4 Private MD: Diagnosis: Hordeolum externum right upper eyelid Presentation: 01/31 07:47 Chief complaint: Patient states: R eye redness, irritation, swollen upper eyelid since ll1 Wednesday slowly getting worse each day. No fever. Coronavirus screen: Client denies travel out of the [place] in the last 14 days. At this time, the client does not indicate any symptoms associated with coronavirus-19. Ebola Screen: Patient denies travel to an Ebola-affected area in the 21 days before illness onset. Initial Sepsis Screen: Does the patient meet any 2 criteria? No. Patient's initial sepsis screen is negative. Does the patient have a suspected source of infection? No. Patient's initial sepsis screen is negative. Risk Assessment: Do you want to hurt yourself or someone else? Patient reports no desire to harm self or others. Onset of symptoms was January 28, 2024. 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 - Infectious Disease History:: Denies. - Social history:: Smoking status: Patient denies any tobacco usage or history of. Screenin:50 [facility] ED Fall Risk Assessment (Adult) History of falling in the last 3 months, ko1 including since admission No falls in past 3 months (0 pts) Confusion or Disorientation No (0 pts) Intoxicated or Sedated No (0 pts) Impaired Gait No (0 pts) Mobility Assist Device Used No (0 pt) Altered Elimination No (0 pt) Score/Fall Risk Level 0 - 2 = Low Risk Oriented to surroundings, Maintained a safe environment, Educated pt \T\ family on fall prevention, incl call for assistance when getting out of bed, Assessed \T\ reinforced patient's understanding of fall precautions, Provided non-skid footwear, Hourly rounding (assess needs \T\ fall precautionary measures) done, Used ambulatory aids as needed (educated on \T\ assisted with), Used gait belt as appropriate. Abuse screen: Denies threats or abuse. Denies injuries from another. Nutritional screening: No deficits noted. Tuberculosis screening: No symptoms or risk factors identified. Assessment: 07:50 General: Appears in no apparent distress. uncomfortable, Behavior is calm, cooperative, ko1 appropriate for age. Pain: Complains of pain in right eye. Neuro: No deficits noted. Cardiovascular: No deficits noted. Respiratory: No deficits noted. GI: No deficits noted. : No deficits noted. EENT: No deficits noted. Derm: No deficits noted. Musculoskeletal: No deficits noted. Vital Signs: 07:47 BP 153 / 108; Pulse 71; Resp 16; Temp 97.2; Pulse Ox 96% ; Weight 90.72 kg; Height 5 ll1 ft. 10 in. ; Pain 4/10; 07:47 Body Mass Index 28.70 (90.72 kg, 177.8 cm) ll1 07:47 Pain Scale: Adult ll1 ED Course: 07:35 Patient arrived in ED. mg5 07:35 Arm band placed on. ll1 07:45 Carey Coulter, BOBO is Primary Nurse. ko1 07:49 Triage completed. ll1 07:50 Patient has correct armband on for positive identification. Bed in low position. Call ko1 light in reach. Side rails up X 1. Pulse ox on. NIBP on. Door closed. Noise minimized. Lights dimmed. 07:51 Carl Hoskins MD is Attending Physician. ec2 08:09 No provider procedures requiring assistance completed. Patient did not have IV access kc6 during this emergency room visit. Administered Medications: No medications were administered Medication: 07:50 VIS not applicable for this client. ko1 Outcome: 07:59 Discharge ordered by . ec2 08:09 Discharged to home ambulatory, kc6 08:09 Condition: good 08:09 Discharge instructions given to patient, Instructed on discharge instructions, follow up and referral plans. medication usage, Demonstrated understanding of instructions, follow-up care, medications, Prescriptions given X 1, 08:09 Patient left the ED. kc6 Signatures: Carole Trammell RN RN ll1 Odalys Gilbert RN RN 6 Carey Coulter, BOBO RN ko1 Renee Newell mg5 Carl Hoskins MD MD ec2
[2024-02-01 09:44] VITALS: BP 153/108; TEMP 97.2; O2SAT 96
== END 2024-02-01 08:09 | disposition home or self-care (01) ==
LOC: ER 07:32
DX: H00.011 Hordeolum externum right upper eyelid (principal)
CPT/HCPCS: 99283